=== PATIENT | male | born 1960 | race Two or more races ===

== ENCOUNTER 2017-04-19 16:42 | Emergency (ER) | payer OTHER ==
[~2017-04-19] VITALS: Ht 165.1 cm; Wt 64.9 kg
[2017-04-19 17:00] VITALS: BP 177/98
[2017-04-19] MEDS ORDERED: NAPROXEN 500 MG TABLET PO STA (17:06)
[2017-04-19] MEDS ORDERED: DIPHTH,PERTUSS(ACELL),TET TOX 0.5 ML DISP.SYRIN. VAX IM ONE (17:15)
--- NOTE | 2017-04-19 17:46 | RAD ---
CT lumbar spine without intravenous contrast History: Fall, low back pain. Technique: Noncontrast CT of the lumbar spine was performed. Axial, sagittal, and coronal reconstructions were obtained. Exposure: One or more of the following individualized dose reduction techniques were utilized for this examination: 1. Automated exposure control 2. Adjustment of the mA and/or kV according to patient size 3. Use of iterative reconstruction technique Findings: There is no evidence of acute fracture or acute malalignment. No paravertebral soft tissue swelling is identified. There are 5 lumbar type vertebral bodies. L2-3 level demonstrates diffuse disc bulge. L3-4 level demonstrates a diffuse disc bulge. Mild bilateral neural foraminal narrowing is seen. L4-5 level demonstrates degenerative disc disease with vacuum disc phenomenon and posterior disc osteophyte complex. Mild bilateral facet hypertrophy is seen. Mild bilateral neural foraminal narrowing is seen. L5-S1 level demonstrates degenerative disc disease with vacuum disc phenomenon and posterior disc osteophyte complex asymmetric to the left. Bilateral facet hypertrophy is seen. Mild-moderate bilateral neural foraminal narrowing is present. Impression: 1. No evidence of acute traumatic injury to the lumbar spine. 2. Degeneration. Electronically signed by: Jun Smith MD (04/19/2017 5:42 PM) [facility]
--- NOTE | 2017-04-19 17:47 | RAD ---
Hip x-rays Indication: Trauma. Technique: AP pelvis and 2 views of the left hip Comparison: None Findings: No acute fracture or dislocation. Very mild bilateral hip joint osteoarthritis. Well-corticated bony fragment lateral to the right superior acetabular rim, nonspecific may represent old avulsion fracture. SI joints within normal limits. Visualized lower lumbar spine within normal limits. Impression: No acute fracture or dislocation.
--- NOTE | 2017-04-19 18:42 | PHYS DOC ---
Past Medical History Past Medical History: Hypertension Past Surgical History: No Surgical History Alcohol Use: Heavy Additional Information: PT REPORTS HE IS A DAILY DRINKER. Drug Use: None Adult General Chief Complaint Chief Complaint: LOWER BACK PAIN OR INJURY HPI HPI Patient is a 57 year old male with history of hypertension who presents with adults 4 out of 10 left low back pain and left hip pain that began this afternoon after he tripped on a ladder and fell on his buttocks. Patient denies any loss of consciousness. Patient denies any pain radiating to bilateral lower extremities. Denies any loss of bowel bladder function. Review of Systems Review of Systems Constitutional: Denies fever or chills [] Eyes: Denies change in visual acuity, redness, or eye pain [] HENT: Denies nasal congestion or sore throat [] Respiratory: Denies cough or shortness of breath [] Cardiovascular: No additional information not addressed in HPI [] GI: Denies abdominal pain, nausea, vomiting, bloody stools or diarrhea [] : Denies dysuria or hematuria [] Musculoskeletal: Left hip and low back pain Integument: Denies rash or skin lesions [] Neurologic: Denies headache, focal weakness or sensory changes [] Current Medications Current Medications Current Medications Medications (Trade) Dose Ordered Sig/Toya Start Time Stop Time Status Last Admin Dose Admin Diphtheria/ Tetanus/Acell Pertussis (Boostrix) 0.5 ml ONCE ONCE 04/19/17 17:15 04/19/17 17:21 DC 04/19/17 17:39 0.5 ML Naproxen (Naprosyn) 500 mg 1X STAT 04/19/17 17:06 04/19/17 17:21 DC 04/19/17 17:37 500 MG Allergies Allergies Allergies Coded Allergies Type Severity Reaction Last Updated Verified No Known Drug Allergies 04/19/17 No Physical Exam Physical Exam Constitutional: Well developed, well nourished, no acute distress, non-toxic appearance. [] HENT: Normocephalic, atraumatic, bilateral external ears normal, oropharynx moist, no oral exudates, nose normal. [] Eyes: PERRLA, EOMI, conjunctiva normal, no discharge. [] Neck: Normal range of motion, no tenderness, supple, no stridor. [] Cardiovascular:Heart rate regular rhythm, no murmur [] Lungs & Thorax: Bilateral breath sounds clear to auscultation [] Abdomen: Bowel sounds normal, soft, no tenderness, no masses, no pulsatile masses. [] Skin: Warm, dry, no erythema, no rash. [] Back: No tenderness, no CVA tenderness. [] Extremities: Bruising noted on the left lumbar spine, mild lumbar spine tenderness as well as diffuse paraspinal muscle tenderness to the left low back. Tenderness on palpation of the left lateral hip. Full range of motion to the left lower extremity. +2 left pedal pulse. Cap refill less than 2 seconds the left lower extremity. Neurologic: Alert and oriented X 3, normal motor function, normal sensory function, no focal deficits noted. [] Psychologic: Affect normal, judgement normal, mood normal. [] Current Patient Data Vital Signs Vital Signs Date Time Temp Pulse Resp B/P (MAP) Pulse Ox O2 Delivery O2 Flow Rate FiO2 04/19/17 17:00 97.9 80 16 100 Room Air 97.9 EKG EKG [] Radiology/Procedures Radiology/Procedures [] Course & Med Decision Making Course & Med Decision Making Pertinent Labs and Imaging studies reviewed. (See chart for details) Patient is in the ED with complaints of left hip pain as well as low back pain after falling. CT of the lumbar spine as well as left hip with pelvic x-rays interpreted by radiologist are negative for any acute findings. Discharged with naproxen and Flexeril. Follow-up with PCP in 1-2 weeks. Dragon Disclaimer Dragon Disclaimer This electronic medical record was generated, in whole or in part, using a voice recognition dictation system. Departure Departure Impression: Primary Impression: Fall from standing Additional Impressions: Lumbar contusion Contusion of hip, left Disposition: 01 HOME, SELF-CARE Condition: STABLE Referrals: NO PCP (PCP) Follow-up with your doctor in one week Patient Instructions: Back Pain, Adult, Contusion, [id number], Fall Prevention and Home Safety Additional Instructions: You were seen for lumbar and left hip contusion. Follow-up with your own doctor the provided doctor in 1-2 weeks. Take naproxen for pain. You can also take Flexeril, do not drive or operate machinery on Flexeril. Scripts Cyclobenzaprine Hcl (CYCLOBENZAPRINE HCL) 10 Mg Tablet 1 TAB PO TID, #30 TAB Prov: PARTH MEDELLIN [employer] 04/19/17 Naproxen (NAPROXEN) 500 Mg Tablet.dr 1 TAB PO BID, #30 TAB 0 Refills Prov: PARTH MEDELLIN APRN 04/19/17 Problem Qualifiers Primary Impression: Fall from standing Encounter type: initial encounter Qualified Codes: W19.XXXA - Unspecified fall, initial encounter Additional Impressions: Lumbar contusion Encounter type: initial encounter Qualified Codes: S30.0XXA - Contusion of lower back and pelvis, initial encounter Contusion of hip, left Encounter type: initial encounter Qualified Codes: S70.02XA - Contusion of left hip, initial encounter PARTH MEDELLIN APRN Apr 19, 2017 18:41
[2017-04-19] MEDS ORDERED: CYCL10TA2 PO (18:47)
[2017-04-19] MEDS ORDERED: NAPR500T8 PO (18:47)
== END 2017-04-19 19:19 | disposition home or self-care (01) ==
LOC: ER 16:42
DX: S30.0XXA Contusion of lower back and pelvis, initial encounter (principal); S70.02XA Contusion of left hip, initial encounter; I10 Essential (primary) hypertension; F10.10 Alcohol abuse, uncomplicated; W11.XXXA Fall on and from ladder, initial encounter; Y93.89 Activity, other specified; Y99.8 Other external cause status; Y92.89 Other specified places as the place of occurrence of the external cause
CPT/HCPCS: 72131; 73502; 90471; 90715; 99284-25